=== PATIENT | female | born 1950 | race Caucasian/White ===

== ENCOUNTER 2016-09-16 14:49 | Inpatient (IN) ==
[2016-09-17] MEDS: *HR* Glimepiride 4 MG TABLET PO SCH (16:56)
[2016-09-17] MEDS: *HR* Metformin 500 MG TABLET PO SCH (16:56)
[2016-09-17] MEDS: Budesonide/Formoterol 80/4.5 MDI IH SCH (20:14)
[2016-09-18 06:13] LABS: Hematocrit 44.6 % (35.3-44.9); Hemoglobin 15.2 g/dL (11.5-15.4); Mean Corpuscular HGB Conc 34.1 g/dL (31.6-35.5); Mean Corpuscular Hemoglobin 31.3 pg (28.0-33.3); Mean Corpuscular Volume 91.8 fL (83.0-100.0); Mean Platelet Volume 11.7 fL (9.4-12.4); Platelet Count 347 K/mcL (140-400); Red Blood Count 4.86 M/mcL (3.82-4.97); Red Cell Distribution Width 13.2 % (11.5-14.5); Segmented Neutrophils % 57.7 %
[2016-09-18 06:14] LABS: Basophils % 0.3 %; Eosinophils # 0.1 K/mcL (0.0-0.6); Eosinophils % 1.5 %; Immature Granulocytes % 0.1 % (0-4); Lymphocytes % 32.8 %; Monocytes # 0.7 K/mcL (0.0-1.3); Monocytes % 7.6 %; Neutrophils # 5.3 K/mcL (1.6-8.9)
[2016-09-18 06:20] LABS: INR 1.2
[2016-09-18 06:23] LABS: Activated Partial Thrombo Time 26.6 Seconds (26.0-36.0)
[2016-09-18 06:32] LABS: BUN/Creatinine Ratio 13 (6-26); Blood Urea Nitrogen 9 mg/dL (7-20); Calcium 9.5 mg/dL (8.6-10.8); Carbon Dioxide 27 mEq/L (19-29); Chloride 105 mEq/L (98-109); Glucose 125 mg/dL (70-99); Osmolality,Calculated 294 (280-300); Potassium 3.2 mEq/L (3.5-4.5); Sodium 142 mEq/L (136-145); eGFR For African Americans > 60 (> 60); eGFR For Non-African Americans > 60 (> 60)
[2016-09-18] MEDS: amLODIPine 5 MG TABLET PO SCH (08:38)
[2016-09-18] MEDS: Fenofibrate 54 MG TABLET PO SCH (08:38)
[2016-09-18] MEDS: Aspirin Enteric Coated 81 MG Tablet PO SCH (08:38)
[2016-09-18] MEDS: *HR* Metformin 500 MG TABLET PO SCH ×2 (08:39→17:09)
[2016-09-18] MEDS: hydroCHLOROthiazide 25 MG TABLET PO SCH (08:39)
[2016-09-18] MEDS: *HR* Glimepiride 4 MG TABLET PO SCH ×2 (08:39→17:09)
[2016-09-18] MEDS: Insulin DETEMIR 100 UNIT/ML X5UNITS SQ SCH (08:40)
[2016-09-18] MEDS ORDERED: INSULIN GLARGINE HUM REC ANLOG SQ SCH (09:00)
--- NOTE | 2016-09-18 11:36 | Internal Med History&Physical ---
Date of Encounter: 09/18/16 Time of Encounter: 11:33 Internal Medicine - H&P: HPI Chief complaint: Patient has CVA Admitted From: Hospital to Hospital Transfer Plans for Post Hospital Care: Home History of present illness: Ms. CARDONA is a 65 year old female Past Med Surg Social Fam HX - Past Medical History Medical history: COPD, CVA, diabetes, myocardial infarction Psychiatric history: no psych history - Social History Smoking Status: Current every day smoker Smokeless Tobacco Status: No Alcohol use: none Drug use: none Internal Medicine - H&P: Meds Albuterol Sulfate 2.5 mg IH QID PRN 09/17/16 [History] Albuterol Sulfate [Ventolin Hfa] 2 puff IH QID PRN 09/17/16 [History] Amlodipine Besylate 10 mg PO DAILY 09/17/16 [History] Aspirin [Lo-Dose Aspirin EC] 81 mg PO DAILY 09/17/16 [History] Atorvastatin [Lipitor] 40 mg PO HS 09/17/16 [History] Clopidogrel [Plavix] 75 mg PO DAILY 09/17/16 [History] Fenofibrate 150 mg PO DAILY 09/17/16 [History] Fluticasone/Salmeterol [Advair 100-50 Diskus] 1 each IH BID 09/17/16 [History] Glimepiride [Amaryl] 4 mg PO BID 09/17/16 [History] Insulin Glargine,Hum.rec.anlog [Toujeo Solostar] 15 unit SQ DAILY 09/17/16 [ History] Nitroglycerin [Nitrostat] 0.4 mg SL PRN 09/17/16 [History] hydroCHLOROthiazide [Hydrochlorothiazide] 12.5 mg PO DAILY 09/17/16 [History] metFORMIN [Glucophage] 1,000 mg PO BIDWM 09/17/16 [History] Allergies Latex, Natural Rubber Allergy (Verified 09/17/16 14:08) See Comments lisinopril Allergy (Verified 09/17/16 14:09) See Comments All Systems PM: A 10-system review of systems was performed and is negative for pertinent findings except as documented above in the HPI. - Constitutional Vitals: Temp Pulse Resp BP Pulse Ox 98.1 F 60 16 141/90 96 09/18/16 07:13 09/18/16 07:33 09/18/16 07:33 09/18/16 07:33 09/18/16 07:33 - Head Head exam: Present: atraumatic, normal inspection, normocephalic - Neck Neck exam general surgery: Present: supple, trachea midline. Absent: lymphadenopathy - Respiratory Respiratory exam: Present: CTAB. Absent: accessory muscle use, rales, rhonchi, wheezes - Neurological Exam Neurological exam: Present: abnormal gait, CN II-XII intact, motor sensory deficit, oriented X3, no focal deficits. Absent: pronater drift, facial droop, speech deficit Additional comments: Patient has left upper extremity left-sided weakness. Speech seems good but she is on thickened liquids and speech will follow this Internal Med - H&P Results - Labs CBC & Chem 7: 09/18/16 05:30 09/18/16 05:30 Labs: Short CBC 09/18/16 Range/Units 05:30 WBC 9.2 (4.3-11.1) K/mcL Hgb 15.2 (11.5-15.4) g/dL Hct 44.6 (35.3-44.9) % Plt Count 347 (140-400) K/mcL Neutrophils # 5.3 (1.6-8.9) K/mcL BMP 09/18/16 05:30 Sodium 142 Potassium 3.2 L Chloride 105 Carbon Dioxide 27 BUN 9 Creatinine 0.69 Glucose 125 H Calcium 9.5 Potassium slightly low will correct - VTE Documentation of Mechanical Device: Graduated compression elastic hosiery
[2016-09-18] MEDS: Potassium Chloride Elixir 20 MEQ/15 ML UDC PO SCH (12:30)
[2016-09-18] MEDS: Budesonide/Formoterol 80/4.5 MDI IH SCH ×2 (12:30→20:09)
[2016-09-18] MEDS: *HR* HYDROcodone/Acet 5/325 mg TABLET PO PRN (16:14)
[2016-09-18] MEDS: Nystatin SUSP 5 ML UD.LIQ PO SCH ×2 (17:08→20:09)
[2016-09-19] MEDS: *HR* HYDROcodone/Acet 5/325 mg TABLET PO PRN ×4 (00:41→20:18)
[2016-09-19 05:45] LABS: BUN/Creatinine Ratio 17 (6-26); Blood Urea Nitrogen 13 mg/dL (7-20); Calcium 9.6 mg/dL (8.6-10.8); Carbon Dioxide 28 mEq/L (19-29); Chloride 103 mEq/L (98-109); Glucose 142 mg/dL (70-99); Osmolality,Calculated 295 (280-300); Potassium 3.2 mEq/L (3.5-4.5); Sodium 141 mEq/L (136-145); eGFR For African Americans > 60 (> 60); eGFR For Non-African Americans > 60 (> 60)
[2016-09-19] MEDS: Potassium Chloride Elixir 20 MEQ/15 ML UDC PO SCH (08:18)
[2016-09-19] MEDS: Nystatin SUSP 5 ML UD.LIQ PO SCH ×4 (08:18→20:18)
[2016-09-19] MEDS: hydroCHLOROthiazide 25 MG TABLET PO SCH (08:18)
[2016-09-19] MEDS: amLODIPine 5 MG TABLET PO SCH (08:18)
[2016-09-19] MEDS: Fenofibrate 54 MG TABLET PO SCH (08:18)
[2016-09-19] MEDS: Aspirin Enteric Coated 81 MG Tablet PO SCH (08:18)
[2016-09-19] MEDS: Insulin DETEMIR 100 UNIT/ML X5UNITS SQ SCH (08:19)
[2016-09-19] MEDS: *HR* Glimepiride 4 MG TABLET PO SCH ×2 (08:19→17:16)
[2016-09-19] MEDS: *HR* Metformin 500 MG TABLET PO SCH ×2 (08:19→17:16)
[2016-09-19] MEDS: Budesonide/Formoterol 80/4.5 MDI IH SCH ×2 (08:19→20:21)
--- NOTE | 2016-09-19 11:40 | Internal Med Progress Note ---
Date of Encounter: 09/19/16 Time of Encounter: 11:39 - Subjective Interval history: Patient had a CVA. Show some left sided weakness. - Constitutional Vitals: Temp Pulse Resp BP Pulse Ox 97.8 F 70 16 149/73 92 09/19/16 06:44 09/19/16 06:44 09/19/16 06:44 09/19/16 06:44 09/19/16 06:44 - Head Head exam: Present: atraumatic, normal inspection, normocephalic - Neck Neck exam general surgery: Present: supple, trachea midline. Absent: lymphadenopathy - Respiratory Respiratory exam: Present: CTAB. Absent: accessory muscle use, rales, rhonchi, wheezes - Cardiovascular Cardiovascular exam: Present: RRR, +S1, +S2. Absent: diastolic murmur, gallop, rubs, systolic murmur - Neurological Exam Neurological exam: Present: abnormal gait, CN II-XII intact, motor sensory deficit (Patient has left-sided weakness. In addition the diet is been changed to normal since she was already on some liquids), oriented X3, no focal deficits. Absent: pronater drift, facial droop, speech deficit Internal Medicine: Result - Labs CBC & Chem 7: 09/18/16 05:30 09/19/16 05:00 Labs: BMP 09/19/16 05:00 Sodium 141 Potassium 3.2 L Chloride 103 Carbon Dioxide 28 BUN 13 Creatinine 0.76 Glucose 142 H Calcium 9.6 - ABG Interpretation ABG results: PT/INR, D-dimer PT 13.0 Seconds (9.4-12.1) H 09/18/16 05:30 - VTE Documentation of Mechanical Device: Graduated compression elastic hosiery Consult Discharge Plan - Plan Referrals: NO,PCP [Primary Care Provider] -
[2016-09-20] MEDS: Nystatin SUSP 5 ML UD.LIQ PO SCH ×4 (08:30→20:10)
[2016-09-20] MEDS: Fenofibrate 54 MG TABLET PO SCH (08:30)
[2016-09-20] MEDS: amLODIPine 5 MG TABLET PO SCH (08:30)
[2016-09-20] MEDS: *HR* HYDROcodone/Acet 5/325 mg TABLET PO PRN ×2 (08:31→20:11)
[2016-09-20] MEDS: *HR* Metformin 500 MG TABLET PO SCH ×2 (08:31→17:45)
[2016-09-20] MEDS: Aspirin Enteric Coated 81 MG Tablet PO SCH (08:31)
[2016-09-20] MEDS: hydroCHLOROthiazide 25 MG TABLET PO SCH (08:32)
[2016-09-20] MEDS: Insulin DETEMIR 100 UNIT/ML X5UNITS SQ SCH (08:32)
[2016-09-20] MEDS: *HR* Glimepiride 4 MG TABLET PO SCH ×2 (08:32→17:45)
[2016-09-20] MEDS: Potassium Chloride Elixir 20 MEQ/15 ML UDC PO SCH ×3 (08:33→17:45)
[2016-09-20] MEDS: Budesonide/Formoterol 80/4.5 MDI IH SCH ×2 (08:35→20:11)
--- NOTE | 2016-09-20 13:04 | Internal Med Progress Note ---
Date of Encounter: 09/20/16 Time of Encounter: 13:02 - Assessment and plan (1) CVA (cerebral vascular accident) Current Visit: Yes Status: Acute Assessment and plan: Left-sided weakness working with the Qualifiers: Qualified Code(s): I63.9 - Cerebral infarction, unspecified - Time Spent With Patient less than 15 minutes - Subjective Interval history: Patient had a CVA. Show some left sided weakness. - Constitutional Vitals: Temp Pulse Resp BP Pulse Ox 97.8 F 95 16 155/82 97 09/20/16 07:50 09/20/16 10:32 09/20/16 10:32 09/20/16 10:32 09/20/16 10:32 Internal Medicine: Result - Labs CBC & Chem 7: 09/18/16 05:30 09/19/16 05:00 - ABG Interpretation ABG results: PT/INR, D-dimer PT 13.0 Seconds (9.4-12.1) H 09/18/16 05:30 - VTE Documentation of Mechanical Device: Graduated compression elastic hosiery Consult Discharge Plan - Plan Referrals: NO,PCP [Primary Care Provider] -
[2016-09-21] MEDS: *HR* HYDROcodone/Acet 5/325 mg TABLET PO PRN ×3 (03:28→18:45)
[2016-09-21 06:00] LABS: BUN/Creatinine Ratio 26 (6-26); Blood Urea Nitrogen 18 mg/dL (7-20); Calcium 9.7 mg/dL (8.6-10.8); Carbon Dioxide 26 mEq/L (19-29); Chloride 107 mEq/L (98-109); Glucose 140 mg/dL (70-99); Osmolality,Calculated 302 (280-300); Potassium 3.4 mEq/L (3.5-4.5); Sodium 144 mEq/L (136-145); eGFR For African Americans > 60 (> 60); eGFR For Non-African Americans > 60 (> 60)
[2016-09-21] MEDS: Fenofibrate 54 MG TABLET PO SCH (08:59)
[2016-09-21] MEDS: amLODIPine 5 MG TABLET PO SCH (08:59)
[2016-09-21] MEDS: Aspirin Enteric Coated 81 MG Tablet PO SCH (08:59)
[2016-09-21] MEDS: hydroCHLOROthiazide 25 MG TABLET PO SCH (08:59)
[2016-09-21] MEDS: *HR* Metformin 500 MG TABLET PO SCH ×2 (09:00→17:51)
[2016-09-21] MEDS: Insulin DETEMIR 100 UNIT/ML X5UNITS SQ SCH (09:00)
[2016-09-21] MEDS: Nystatin SUSP 5 ML UD.LIQ PO SCH ×4 (09:00→19:35)
[2016-09-21] MEDS: Potassium Chloride Elixir 20 MEQ/15 ML UDC PO SCH ×2 (09:00→17:51)
[2016-09-21] MEDS: *HR* Glimepiride 4 MG TABLET PO SCH ×2 (09:00→17:51)
[2016-09-21] MEDS: Budesonide/Formoterol 80/4.5 MDI IH SCH ×2 (09:01→19:33)
[2016-09-22] MEDS: *HR* HYDROcodone/Acet 5/325 mg TABLET PO PRN ×3 (04:29→19:46)
[2016-09-22 05:44] LABS: Basophils % 0.4 %; Eosinophils # 0.1 K/mcL (0.0-0.6); Hematocrit 42.5 % (35.3-44.9); Hemoglobin 14.4 g/dL (11.5-15.4); Immature Granulocytes % 0.3 % (0-4); Lymphocytes # 3.1 K/mcL (0.6-4.6); Lymphocytes % 29.2 %; Mean Corpuscular HGB Conc 33.9 g/dL (31.6-35.5); Mean Corpuscular Hemoglobin 31.2 pg (28.0-33.3); Mean Platelet Volume 11.9 fL (9.4-12.4); Monocytes % 9.3 %; Neutrophils # 6.3 K/mcL (1.6-8.9); Platelet Count 295 K/mcL (140-400); Red Blood Count 4.62 M/mcL (3.82-4.97); Red Cell Distribution Width 13.1 % (11.5-14.5); Segmented Neutrophils % 59.8 %
[2016-09-22 05:48] LABS: Bilirubin,Urine Small (Negative); Blood,Urine Trace-intact (Negative); Clarity,Urine Slightly Cloudy (Clear); Color,Urine Dark Yellow (Yellow); Glucose,Urine (UA) 100 mg/dL (Normal); Ketones,Urine Negative (Negative); Leukocyte Esterase,Urine Small (Negative); Nitrite,Urine Positive (Negative); Protein,Urine 30 mg/dL (Neg-Trace); Specific Gravity,Urine >= 1.030 (1.010-1.025); Urobilinogen,Urine Normal (Normal)
[2016-09-22 05:49] LABS: Bacteria,Urine Moderate per hpf (None-Few); Hyaline Casts,Urine Few per lpf (None-Few); RBC,Urine 0-3 per hpf (0-3); Squamous Epithelial Cell,Urine Few per lpf (None-Few)
[2016-09-22 05:58] LABS: BUN/Creatinine Ratio 23 (6-26); Blood Urea Nitrogen 15 mg/dL (7-20); Calcium 9.9 mg/dL (8.6-10.8); Carbon Dioxide 25 mEq/L (19-29); Chloride 104 mEq/L (98-109); Glucose 107 mg/dL (70-99); Osmolality,Calculated 293 (280-300); Potassium 3.4 mEq/L (3.5-4.5); Sodium 141 mEq/L (136-145); eGFR For African Americans > 60 (> 60); eGFR For Non-African Americans > 60 (> 60)
[2016-09-22] MEDS: hydroCHLOROthiazide 25 MG TABLET PO SCH (08:20)
[2016-09-22] MEDS: Fenofibrate 54 MG TABLET PO SCH (08:20)
[2016-09-22] MEDS: Insulin DETEMIR 100 UNIT/ML X5UNITS SQ SCH (08:21)
[2016-09-22] MEDS: *HR* Glimepiride 4 MG TABLET PO SCH ×2 (08:21→17:39)
[2016-09-22] MEDS: amLODIPine 5 MG TABLET PO SCH (08:21)
[2016-09-22] MEDS: *HR* Metformin 500 MG TABLET PO SCH ×2 (08:21→17:39)
[2016-09-22] MEDS: Sulfamethoxazole/Trimeth DS 1 EACH TABLET PO SCH ×2 (08:21→19:46)
[2016-09-22] MEDS: Potassium Chloride Elixir 20 MEQ/15 ML UDC PO SCH ×2 (08:21→17:46)
[2016-09-22] MEDS: Nystatin SUSP 5 ML UD.LIQ PO SCH ×4 (08:21→19:47)
[2016-09-22] MEDS: Aspirin Enteric Coated 81 MG Tablet PO SCH (08:21)
[2016-09-22] MEDS: Budesonide/Formoterol 80/4.5 MDI IH SCH ×2 (12:05→19:47)
--- NOTE | 2016-09-22 14:44 | Internal Med Progress Note ---
Date of Encounter: 09/22/16 Time of Encounter: 14:42 - Assessment and plan (1) CVA (cerebral vascular accident) Current Visit: Yes Status: Acute Assessment and plan: Patient had a CVA she had left-sided weakness per staff feels it may be an extension of the ischemic changes and I am checking a CT Qualifiers: Precerebral and cerebral artery: middle cerebral artery Laterality of affected vessel: right Qualified Code(s): I63.311 - Cerebral infarction due to thrombosis of right middle cerebral artery - Time Spent With Patient less than 15 minutes - Subjective Interval history: Stairs seems to think the patient may have extended her CVA. I am ordering a CT scan. - Constitutional Vitals: Temp Pulse Resp BP Pulse Ox 98.0 F 69 18 125/88 96 09/22/16 07:00 09/22/16 07:00 09/22/16 07:00 09/22/16 07:00 09/22/16 07:00 - Head Head exam: Present: atraumatic, normal inspection, normocephalic - Neck Neck exam general surgery: Present: supple, trachea midline. Absent: lymphadenopathy - Respiratory Respiratory exam: Present: CTAB. Absent: accessory muscle use, rales, rhonchi, wheezes - Cardiovascular Cardiovascular exam: Present: RRR, +S1, +S2. Absent: diastolic murmur, gallop, rubs, systolic murmur - GI/Abdominal GI/Abdominal exam: Present: normal bowel sounds, soft, no peritoneal signs. Absent: distended, tenderness Internal Medicine: Result - Labs CBC & Chem 7: 09/22/16 05:25 09/22/16 05:25 Labs: Short CBC 09/22/16 Range/Units 05:25 WBC 10.6 (4.3-11.1) K/mcL Hgb 14.4 (11.5-15.4) g/dL Hct 42.5 (35.3-44.9) % Plt Count 295 (140-400) K/mcL Neutrophils # 6.3 (1.6-8.9) K/mcL BMP 09/22/16 05:25 Sodium 141 Potassium 3.4 L Chloride 104 Carbon Dioxide 25 BUN 15 Creatinine 0.64 Glucose 107 H Calcium 9.9 Urine 09/22/16 Range/Units 05:30 Urine Color Dark Yellow (Yellow) Urine Clarity Slightly Cloudy A (Clear) Urine pH 6.0 (5.0-8.0) pH Units Ur Specific Dugger >= 1.030 H (1.010-1.025) Urine Protein 30 H (Neg-Trace) mg/dL Urine Glucose (UA) 100 H (Normal) mg/dL - ABG Interpretation ABG results: PT/INR, D-dimer PT 13.0 Seconds (9.4-12.1) H 09/18/16 05:30 - VTE Documentation of Mechanical Device: Graduated compression elastic hosiery Consult Discharge Plan - Plan Referrals: NO,PCP [Primary Care Provider] -
[2016-09-23] MEDS: *HR* HYDROcodone/Acet 5/325 mg TABLET PO PRN ×3 (05:05→23:10)
[2016-09-23] MEDS: Fenofibrate 54 MG TABLET PO SCH (08:43)
[2016-09-23] MEDS: Potassium Chloride Elixir 20 MEQ/15 ML UDC PO SCH ×2 (08:43→18:06)
[2016-09-23] MEDS: amLODIPine 5 MG TABLET PO SCH (08:43)
[2016-09-23] MEDS: Aspirin Enteric Coated 81 MG Tablet PO SCH (08:45)
[2016-09-23] MEDS: Nystatin SUSP 5 ML UD.LIQ PO SCH ×4 (08:45→19:28)
[2016-09-23] MEDS: hydroCHLOROthiazide 25 MG TABLET PO SCH (08:45)
[2016-09-23] MEDS: *HR* Metformin 500 MG TABLET PO SCH ×2 (08:45→18:06)
[2016-09-23] MEDS: *HR* Glimepiride 4 MG TABLET PO SCH ×2 (08:45→18:06)
[2016-09-23] MEDS: Sulfamethoxazole/Trimeth DS 1 EACH TABLET PO SCH ×2 (08:45→19:27)
[2016-09-23] MEDS: Insulin DETEMIR 100 UNIT/ML X5UNITS SQ SCH (09:40)
[2016-09-23] MEDS: Budesonide/Formoterol 80/4.5 MDI IH SCH ×2 (09:40→20:02)
--- NOTE | 2016-09-23 13:43 | Internal Med Progress Note ---
Date of Encounter: 09/23/16 Time of Encounter: 13:40 - Assessment and plan (1) CVA (cerebral vascular accident) Current Visit: Yes Status: Acute Assessment and plan: Patient has CVA and looks like the latest CT scan shows some extension. On aspirin and Plavix. 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 I am ordering a CT scan. CT scan showed a possible extension. It is not a big difference but the staff was concerned that she had some increasing left-sided weakness - Constitutional Vitals: Temp Pulse Resp BP Pulse Ox 98.1 F 58 16 131/85 96 09/23/16 07:00 09/23/16 07:00 09/23/16 07:00 09/23/16 07:00 09/23/16 07:00 - Head Head exam: Present: normal inspection - Neck Neck exam general surgery: Present: supple, trachea midline. Absent: lymphadenopathy - Respiratory Respiratory exam: Present: CTAB. Absent: accessory muscle use, rales, rhonchi, wheezes - Cardiovascular Cardiovascular exam: Present: RRR, +S1, +S2. Absent: diastolic murmur, gallop, rubs, systolic murmur Internal Medicine: Result - Labs CBC & Chem 7: 09/22/16 05:25 09/22/16 05:25 Labs: Potassium was still slightly low - ABG Interpretation ABG results: PT/INR, D-dimer PT 13.0 Seconds (9.4-12.1) H 09/18/16 05:30 - Impressions Impressions Head CT 09/22/16 14:17 IMPRESSION: 1. Evolving subacute right parasagittal frontal lobe infarction involving the right anterior cerebral artery vascular territory. This is new from the head CT and MRI brain performed on 09/14/2016 and 09/15/2016, respectively. 2. Evolving subacute right middle cerebral artery vascular territory infarctions. 3. No acute intracranial hemorrhage. The findings were sent to the [facility] at 3:15 pm on 7/17/2017to be communicated to a licensed caregiver. D/ / 09/22/2016 15:23:40 Esa Fulton MD / jennifer Interpreting Provider: Esa Fulton MD - VTE Documentation of Mechanical Device: Graduated compression elastic hosiery Consult Discharge Plan - Plan Referrals: NO,PCP [Primary Care Provider] -
[2016-09-24] MEDS: *HR* HYDROcodone/Acet 5/325 mg TABLET PO PRN ×3 (06:05→18:38)
[2016-09-24] MEDS: Nicotine 21 MG PATCH.TD24 TD SCH (09:41)
[2016-09-24] MEDS: Nystatin SUSP 5 ML UD.LIQ PO SCH ×4 (09:41→20:25)
[2016-09-24] MEDS: Aspirin Enteric Coated 81 MG Tablet PO SCH (09:41)
[2016-09-24] MEDS: Fenofibrate 54 MG TABLET PO SCH (09:42)
[2016-09-24] MEDS: Sulfamethoxazole/Trimeth DS 1 EACH TABLET PO SCH ×2 (09:42→20:25)
[2016-09-24] MEDS: hydroCHLOROthiazide 25 MG TABLET PO SCH (09:42)
[2016-09-24] MEDS: amLODIPine 5 MG TABLET PO SCH (09:42)
[2016-09-24] MEDS: *HR* Metformin 500 MG TABLET PO SCH ×2 (09:42→18:38)
[2016-09-24] MEDS: *HR* Glimepiride 4 MG TABLET PO SCH ×2 (09:43→18:38)
[2016-09-24] MEDS: Budesonide/Formoterol 80/4.5 MDI IH SCH ×2 (09:59→20:30)
[2016-09-24] MEDS: Potassium Chloride Elixir 20 MEQ/15 ML UDC PO SCH ×2 (10:02→18:38)
--- NOTE | 2016-09-24 11:28 | Internal Med Progress Note ---
Date of Encounter: 09/24/16 Time of Encounter: 11:25 - Assessment and plan (1) CVA (cerebral vascular accident) Current Visit: Yes Status: Acute Assessment and plan: Patient's here for therapy. Extension over the weekend apparently Qualifiers: Precerebral and cerebral artery: middle cerebral artery Laterality of affected vessel: right Qualified Code(s): I63.311 - Cerebral infarction due to thrombosis of right middle cerebral artery - Time Spent With Patient less than 15 minutes - Subjective Interval history: Patient told the nurse yesterday she was leaving her son arrived. But obviously he did not take her home. She is agitating to leave but she really needs therapy.. - Constitutional Vitals: Temp Pulse Resp BP Pulse Ox 97.8 F 69 16 122/73 92 09/24/16 07:14 09/24/16 07:14 09/24/16 07:14 09/24/16 07:14 09/24/16 07:14 - Head Head exam: Present: atraumatic, normal inspection, normocephalic - Neck Neck exam general surgery: Present: supple, trachea midline. Absent: lymphadenopathy - Respiratory Respiratory exam: Present: CTAB. Absent: accessory muscle use, rales, rhonchi, wheezes - Cardiovascular Cardiovascular exam: Present: RRR, +S1, +S2. Absent: diastolic murmur, gallop, rubs, systolic murmur Internal Medicine: Result - Labs CBC & Chem 7: 09/22/16 05:25 09/22/16 05:25 Labs: Lab is stable - ABG Interpretation ABG results: PT/INR, D-dimer PT 13.0 Seconds (9.4-12.1) H 09/18/16 05:30 - Impressions Impressions Head CT 09/22/16 14:17 IMPRESSION: 1. Evolving subacute right parasagittal frontal lobe infarction involving the right anterior cerebral artery vascular territory. This is new from the head CT and MRI brain performed on 09/14/2016 and 09/15/2016, respectively. 2. Evolving subacute right middle cerebral artery vascular territory infarctions. 3. No acute intracranial hemorrhage. The findings were sent to the Radiology Results Communication [facility] at 3:15 pm on 09/22/2016to be communicated to a licensed caregiver. D/ / 09/22/2016 15:23:40 Esa Fulton MD / jennifer Interpreting Provider: Esa Fulton MD - VTE Documentation of Mechanical Device: Graduated compression elastic hosiery Consult Discharge Plan - Plan Referrals: NO,PCP [Primary Care Provider] -
[2016-09-24] MEDS: Insulin DETEMIR 100 UNIT/ML X5UNITS SQ SCH (12:59)
--- NOTE | 2016-09-24 16:21 | Psychological Evaluation ---
Date of Encounter: 09/24/16 Time of Encounter: 11:30 History of Present Illness History of present illness: Ms. POTTS is a 65 year old female admitted to [facility] for inpatient rehabilitation following a recent stroke. She sustained a stroke in July 2016. This is her second stroke (September 2016). She was seen on this date to assess her current cognitive and emotional functioning. Past Medical History Medical history: Significant for COPD, diabetes, myocardial infarction and previous CVA. - Psychiatric History Additional Psychiatric History: There is no history of psychiatric hospitalization or mental health counseling. She denied any previous treatment for depression or anxiety and there is no known history of suicidal ideation, intention or attempt. There is no family history of psychiatric or mental health issues. Home Medications and Allergies Albuterol Sulfate 2.5 mg IH QID PRN 09/17/16 [History] Albuterol Sulfate [Ventolin Hfa] 2 puff IH QID PRN 09/17/16 [History] Amlodipine Besylate 10 mg PO DAILY 09/17/16 [History] Aspirin [Lo-Dose Aspirin EC] 81 mg PO DAILY 09/17/16 [History] Atorvastatin [Lipitor] 40 mg PO HS 09/17/16 [History] Clopidogrel [Plavix] 75 mg PO DAILY 09/17/16 [History] Fenofibrate 150 mg PO DAILY 09/17/16 [History] Fluticasone/Salmeterol [Advair 100-50 Diskus] 1 each IH BID 09/17/16 [History] Glimepiride [Amaryl] 4 mg PO BID 09/17/16 [History] Insulin Glargine,Hum.rec.anlog [Tojair Solostar] 15 unit SQ DAILY 09/17/16 [ History] Nitroglycerin [Nitrostat] 0.4 mg SL PRN 09/17/16 [History] hydroCHLOROthiazide [Hydrochlorothiazide] 12.5 mg PO DAILY 09/17/16 [History] metFORMIN [Glucophage] 1,000 mg PO BIDWM 09/17/16 [History] Allergies Latex, Natural Rubber Allergy (Verified 09/17/16 14:08) See Comments lisinopril Allergy (Verified 09/17/16 14:09) See Comments Social History - Social History Social History: Ms. Potts reported that she is the mother of 6 children (4 sons and 2 daughters ). She did not disclose her current marital status. Prior to her most recent CVA, she was residing in a [facility] but signed herself out AMA. She was reportedly living with one of her sons. Her plans post-discharge are to return to her son's home or to a [facility]. Ms. Potts was a poor historian. 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 - Tobacco Use Smoking Status: Current every day smoker - Alcohol Use Alcohol Use: none Cognitive/Emotional Assessment - Cognitive Ability Additional Findings: Ms. Potts was lethargic and closed her eyes during the interview. She struggled to maintain alertness/attention. Responses were slow and delayed. Speech was clear, fluent and effective but she spoke in a soft, slow manner. Thought processes were logical, goal directed and coherent. There were no signs of delusional ideation. At one point, however, she called out the name of one of her sons and asked him to get her some water because her mouth was dry. She seemed to believe he was present in the room but did not reference his name again. She was able to perform rote arithmetic but not simple mental arithmetic. She performed within the mild to moderately impaired range on measures of sentence repetition, attention and delayed verbal recall . She performed adequate on confrontational naming. Ms. Potts displayed significant left neglect. Her insight/awareness of her cognitive strengths and areas of deficit appeared limited. - Emotional Status Additional Findings: Ms. Potts was cooperative but not engaging or friendly. Affect was restricted/ flat. She denied feeling depressed or anxious but reported that she was experiencing significant pain in her back. In addition, she complained of having a headache. Assessment & Plan - Diagnosis (1) Cognitive deficit due to recent stroke (2) Other specified mental disorders due to known physiological condition - Treatment Plan Treatment Plan/Recommendations: Will provide supportive therapy and education regarding stroke recovery as indicated while Ms. Potts is an inpatient at [facility]. Procedures - Session Time Session Start Time: 11:30 Session Stop Time: 12:00
[2016-09-25] MEDS: *HR* HYDROcodone/Acet 5/325 mg TABLET PO PRN (04:58)
[2016-09-25 06:56] VITALS: BP 112/74
[2016-09-25] MEDS: Nicotine 21 MG PATCH.TD24 TD SCH (08:50)
[2016-09-25] MEDS: Insulin DETEMIR 100 UNIT/ML X5UNITS SQ SCH (08:50)
[2016-09-25] MEDS: Nystatin SUSP 5 ML UD.LIQ PO SCH ×3 (08:50→18:13)
[2016-09-25] MEDS: Potassium Chloride Elixir 20 MEQ/15 ML UDC PO SCH ×2 (08:50→18:13)
[2016-09-25] MEDS: Fenofibrate 54 MG TABLET PO SCH (08:51)
[2016-09-25] MEDS: hydroCHLOROthiazide 25 MG TABLET PO SCH (08:51)
[2016-09-25] MEDS: Aspirin Enteric Coated 81 MG Tablet PO SCH (08:51)
[2016-09-25] MEDS: amLODIPine 5 MG TABLET PO SCH (08:51)
[2016-09-25] MEDS: Sulfamethoxazole/Trimeth DS 1 EACH TABLET PO SCH (08:51)
[2016-09-25] MEDS: *HR* Metformin 500 MG TABLET PO SCH ×2 (08:51→18:13)
[2016-09-25] MEDS: *HR* Glimepiride 4 MG TABLET PO SCH ×2 (08:51→18:13)
[2016-09-25] MEDS: Budesonide/Formoterol 80/4.5 MDI IH SCH (08:52)
[2016-09-25] MEDS ORDERED: *HR* HYDROcodone/Acet 5/325 mg TABLET PO PRN (11:48)
--- NOTE | 2016-09-25 14:16 | Internal Med Progress Note ---
Date of Encounter: 09/25/16 Time of Encounter: 14:14 - Assessment and plan (1) CVA (cerebral vascular accident) Current Visit: Yes Status: Acute Qualifiers: Precerebral and cerebral artery: middle cerebral artery Laterality of affected vessel: right Qualified Code(s): I63.311 - Cerebral infarction due to thrombosis of right middle cerebral artery - Subjective Interval history: A this morning patient has some chest pain and EKG was unchanged there is troponin was very very low and outpatient resolved with some O2 at rest. I am just concerned possibly this is related therapy. We are continuing to work with her. In spite of the fact that she has multiple complaints constantly.. - Constitutional Vitals: Temp Pulse Resp BP Pulse Ox 98.3 F 66 18 112/74 92 09/25/16 06:56 09/25/16 06:56 09/25/16 06:56 09/25/16 06:56 09/25/16 06:56 - Head Head exam: Present: atraumatic, normal inspection, normocephalic - Neck Neck exam general surgery: Present: supple, trachea midline. Absent: lymphadenopathy - Respiratory Respiratory exam: Present: CTAB. Absent: accessory muscle use, rales, rhonchi, wheezes - Cardiovascular Cardiovascular exam: Present: RRR, +S1, +S2. Absent: diastolic murmur, gallop, rubs, systolic murmur - Neurological Exam Neurological exam: Present: CN II-XII intact, motor sensory deficit, oriented X3 , no focal deficits. Absent: pronater drift, facial droop, speech deficit Additional comments: Patient has left-sided neglect. However trying to constantly remind her to turn and look to the left. Internal Medicine: Result - Labs CBC & Chem 7: 09/22/16 05:25 09/22/16 05:25 Labs: Cardiac Enzymes 09/25/16 Range/Units 11:27 Troponin I 0.02 (0-0.03) ng/mL - ABG Interpretation ABG results: PT/INR, D-dimer PT 13.0 Seconds (9.4-12.1) H 09/18/16 05:30 - VTE Documentation of Mechanical Device: Graduated compression elastic hosiery Consult Discharge Plan - Plan Referrals: NO,PCP [Primary Care Provider] -
--- NOTE | 2016-09-25 15:58 | Electrocardiograph Report ---
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
[2016-09-25] MEDS ORDERED: Baclofen 10 MG TABLET PO SCH (21:00)
--- NOTE | 2016-11-11 14:24 | Discharge Summary ---
Date of Encounter: 11/11/16 Time of Encounter: 14:00 - Discharge Diagnosis (1) CVA (cerebral vascular accident) Priority: Primary Status: Acute Comments: Dictated therapy being discharged home and much improved Qualifiers: Precerebral and cerebral artery: middle cerebral artery Laterality of affected vessel: right Qualified Code(s): I63.311 - Cerebral infarction due to thrombosis of right middle cerebral artery - Discharge Medications Home Medications: Albuterol Sulfate 2.5 mg IH QID PRN 09/17/16 [History] Albuterol Sulfate [Ventolin Hfa] 2 puff IH QID PRN 09/17/16 [History] Amlodipine Besylate 10 mg PO DAILY 09/17/16 [History] Aspirin [Lo-Dose Aspirin EC] 81 mg PO DAILY 09/17/16 [History] Atorvastatin [Lipitor] 40 mg PO HS 09/17/16 [History] Clopidogrel [Plavix] 75 mg PO DAILY 09/17/16 [History] Fenofibrate 150 mg PO DAILY 09/17/16 [History] Fluticasone/Salmeterol [Advair 100-50 Diskus] 1 each IH BID 09/17/16 [History] Glimepiride [Amaryl] 4 mg PO BID 09/17/16 [History] Insulin Glargine,Hum.rec.anlog [Toujeo Solostar] 15 unit SQ DAILY 09/17/16 [ History] Nitroglycerin [Nitrostat] 0.4 mg SL PRN 09/17/16 [History] hydroCHLOROthiazide [Hydrochlorothiazide] 12.5 mg PO DAILY 09/17/16 [History] metFORMIN [Glucophage] 1,000 mg PO BIDWM 09/17/16 [History] Allergies/Adverse Reactions: 3 Allergy/AdvReac Type Severity Reaction Status Date / Time Latex, Natural Rubber Allergy See Verified 09/17/16 14:08 Comments lisinopril Allergy See Verified 09/17/16 14:09 Comments Date of admission: 09/17/16 13:24 Primary care physician: PCP NONE Consults: 09/17/16 14:29 Consult to Occupational Therapy [CONS] Routine Comment: Evaluate, develop and implement POC Reason for Consult: eval Consult to Physical Therapy [CONS] Routine Comment: Evaluate, develop and implement POC Reason for Consult: eval Consult to Recreational Therapy [CONS] Routine Comment: Evaluate, develop and implement POC Consult to Clinical Transplant Coordinator [CONS] Routine Reason for SW Consult: eval Consult to Speech Therapy [CONS] Routine Comment: Evaluate, develop and implement POC Reason for Consult: speech impairment Call Completed: Yes 09/24/16 15:13 Consult to Psychology [CONS] Routine Consulting Provider: Pily Zhao Reason for Consult: CVA Time Notified: 12:00 Call Completed: No Discharging clinician: Dejon Villa Anticipated date of discharge: 11/11/16 - Patient Status Disposition: Home, Self-Care Condition: Fair Functional capacity at discharge: uses cane/walker Overall status at discharge: patient is progressing back to baseline - Discharge Instructions Follow Up With: NONE,PCP [Primary Care Provider] - - Diet and Activity Activity: ambulate only with your walker Diet: advance to your usual diet Interval History: A she admitted after CVA and underwent speech PT OT follow with TR therapy Hospital course: Ms. Potts is a 66 year old female She will be discharged in improved condition continue as an outpatient. - Time Spent with Patient Total time spent providing and/or coordinating discharge services: Less than 30 minutes - Constitutional Vitals: Temp Pulse Resp BP Pulse Ox 98.3 F 66 18 112/74 92 09/25/16 06:56 09/25/16 06:56 09/25/16 06:56 09/25/16 06:56 09/25/16 06:56 - Head Head exam: Present: atraumatic, normocephalic - Respiratory Respiratory exam: Present: CTAB. Absent: accessory muscle use, rales, rhonchi, wheezes - Cardiovascular Cardiovascular exam: Present: RRR, +S1, +S2. Absent: diastolic murmur, gallop, rubs, systolic murmur - Stroke Contraindication Rehab Services Not Assessed: Refused by Patient / Family - VTE Documentation of Mechanical Device: Graduated compression elastic hosiery
== END 2016-09-25 18:52 | disposition home or self-care (01) | DRG 57 ==
LOC: INPGRE 09-17 13:24
PROVIDERS: ADMIT Internal Medicine; ATTEND Internal Medicine